=== PATIENT | female | born 1995 | race Two or more races ===

== ENCOUNTER 2025-01-23 15:28 | Outpatient (CLI) | payer OTHER | END 2025-01-23 15:29 | disposition home or self-care (01) | LOC: PRENATAL 15:28 | PROVIDERS: ATTEND Obstetrics & Gynecology Maternal & Fetal Medicine | DX: O36.80X0 Pregnancy with inconclusive fetal viability, not applicable or unspecified (principal); Z36.82 Encounter for antenatal screening for nuchal translucency; Z14.8 Genetic carrier of other disease; Z3A.12 12 weeks gestation of pregnancy ==

== ENCOUNTER 2025-03-07 13:05 | Emergency (ER) | payer OTHER ==
[~2025-03-07] VITALS: Ht 157.5 cm; Wt 64.9 kg
[2025-03-07] MEDS ORDERED: PRENATAL + DHA1 EAC1 PO (13:45)
[2025-03-07] MEDS ORDERED: 0.9 % SODIUM CHLORIDE 1,000 ML IV STA (14:30)
[2025-03-07 15:39] LABS: BASO % 0.3 % (0.1-1.2); EOS # 0.00 (0.04-0.54); EOS % 0.0 % (0.7-7.0); LYMPH # 1.25 (1.18-3.74); LYMPH % 15.8 % (19.3-53.1); MEAN PLATELET VOLUME 9.70 fl (9.4-12.4); MONO # 0.73 (0.24-0.82); MONO % 9.2 % (4.7-12.5); NEUT # 5.86 (1.56-6.13); NEUT % 74.2 % (34.0-71.1); RED CELL DISTRIBUTION WIDTH 12.2 % (11.6-14.4)
[2025-03-07 16:13] LABS: URINE APPEARANCE Cloudy; URINE BILIRRUBIN Small (NEGATIVE); URINE BLOOD Negative; URINE COLOR Dark Yellow; URINE GLUCOSE Negative (NEGATIVE); URINE LEUKOCYTE Trace; URINE NITRATE Negative; URINE PROTEIN 30 (NEGATIVE); URINE UROBILINOGEN 1.0 E.U./dl
[2025-03-07 16:16] LABS: URINE BACTERIA 559.1 uL (0.0-1933); URINE EPITHELIAL CELLS 152.4 uL (0.0-38.8); URINE RBC 39.7 uL (0.0-20.8); URINE WBC 8.0 uL (0.0-23.2)
[2025-03-07 16:25] LABS: URINE CAST 0.58 uL (0.0-1.40); URINE KETONE >=160 (NEGATIVE)
[2025-03-07] MEDS ORDERED: ONDANSETRON HCL 2 MG/ML VIAL IV ONE (17:45)
[2025-03-07] MEDS ORDERED: FAMOtidine 10 MG/ML (4ML VIAL) IV ONE (17:45)
[2025-03-07] MEDS ORDERED: ONDANSETRON HCL 2 MG/ML VIAL ONE (18:28)
[2025-03-07 19:08] LABS: BUN CREA RATIO 12.0 (7.0-25.0); CREATININE SERUM 0.49 mg/dL (0.55-1.02); GFR 150.38; GLUCOSE FASTING 91.0 mg/dL (65-100); OSMOLALITY SERUM 265.0 MOSM/KG (275-295)
[2025-03-07 19:24] LABS: COVID-19 AG NEGATIVE (NEGATIVE)
[2025-03-07] MEDS ORDERED: PROBIOTIC1 EAC2 PO (19:36)
[2025-03-07] MEDS ORDERED: PEPCID AC20 MG PO (19:36)
== END 2025-03-07 20:31 | disposition home or self-care (01) ==
LOC: ER 13:12
PROVIDERS: Emergency Medicine; General Practice
DX: Z33.1 Pregnant state, incidental (principal); Z3A.09 9 weeks gestation of pregnancy; K52.89 Other specified noninfective gastroenteritis and colitis; R11.10 Vomiting, unspecified; Z20.822 Contact with and (suspected) exposure to COVID-19

== ENCOUNTER 2025-03-14 08:37 | Outpatient (CLI) | payer OTHER ==
[~2025-03-14 08:37] MED LIST: PEPCID AC20 MG PO; PRENATAL + DHA1 EAC1 PO; PROBIOTIC1 EAC2 PO
== END 2025-03-14 08:39 | disposition home or self-care (01) ==
LOC: PRENATAL 08:37
PROVIDERS: ATTEND Obstetrics & Gynecology Maternal & Fetal Medicine
DX: O44.00 Complete placenta previa NOS or without hemorrhage, unspecified trimester (principal); O28.3 Abnormal ultrasonic finding on antenatal screening of mother; Z3A.20 20 weeks gestation of pregnancy

== ENCOUNTER 2025-05-09 15:04 | Outpatient (CLI) | payer OTHER | END 2025-05-09 15:06 | disposition home or self-care (01) | LOC: PRENATAL 15:04 | PROVIDERS: ATTEND Obstetrics & Gynecology Maternal & Fetal Medicine | DX: O26.843 Uterine size-date discrepancy, third trimester (principal); O28.3 Abnormal ultrasonic finding on antenatal screening of mother; Z3A.28 28 weeks gestation of pregnancy ==

== ENCOUNTER → 2025-06-24 07:54 | Outpatient (CLI) | payer OTHER | END | disposition home or self-care (01) | LOC: PRENATAL 07:54 | PROVIDERS: ATTEND Obstetrics & Gynecology Maternal & Fetal Medicine | DX: O26.843 Uterine size-date discrepancy, third trimester (principal); O36.8130 Decreased fetal movements, third trimester, not applicable or unspecified; O28.3 Abnormal ultrasonic finding on antenatal screening of mother; Z3A.34 34 weeks gestation of pregnancy ==